=== PATIENT | female | born 2005 | race Caucasian/White ===

== ENCOUNTER 2025-08-14 23:36 | Observation (INO) ==
--- NOTE | 2025-08-15 00:15 | Emergency Department Note ---
Impression & Plan Acute appendicitis Admission ED Provider Note HPI: History obtained from patient. The patient is a 20-year-old female who presents emergency department with a chief complaint of lower abdominal pain that began at around 5 PM. Patient states she has also had 2 episodes of vomiting. Patient denies any diarrhea, she denies any chest pain or shortness of breath. On arrival here to the ED the patient is hemodynamically stable, she otherwise appears to be in no acute distress. ROS: - Per HPI Differential Diagnosis: Appendicitis, viral gastroenteritis, constipation, bowel obstruction, acute cholecystitis, diverticulitis flare, ectopic , amongst other potential pathologies. *Outpatient medications and allergy history reviewed. 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 Patient was given IV fluids as well as IV morphine and IV Zofran. CT imaging of the abdomen pelvis with IV contrast is suggestive of an early acute appendicitis per the interpreting radiologist. I discussed the patient's presentation and CT imaging results with the on-call general surgeon, Dr. Hernandes. He is in agreement to admit the patient and stated that he would plan to perform an appendectomy later this morning. I discussed this with the patient and with her mother over the phone, they are in agreement to this plan and the patient was placed for admission in stable condition. Consultants/Discussions held with other healthcare providers: -General surgery, Dr. Hernandes Disposition discussion held by myself with: -Patient and patient's mother over the phone Diagnosis: 1. Acute appendicitis 2. Leukocytosis, acute Disposition: Admission John Paige DO Emergency Medicine Past Med/Surg History Problem List (Updated 08/15/25 @ 04:55 by John Paige DO) Acute appendicitis (Acute) Social History Smoking Status: Never smoker Preferred Language: Uzbek Feels Safe at Home: Yes Allergies Allergies Allergy/AdvReac Type Severity Reaction Status Date / Time No Known Allergies Allergy Unverified 08/15/25 02:49 Home Meds Home Medications Medication Instructions Recorded Confirmed levonorgestrel-ethinyl estradiol 1 tab PO DAILY 08/15/25 08/15/25 0.1 mg-20 mcg tablet (Vienva) Results & Data (ED) Vital Signs Vital Signs - 24 hr 08/14/25 23:40 08/15/25 00:19 08/15/25 00:21 Temperature 36.5 C Temperature Source Temporal Artery Scan Pulse Rate 79 72 68 Pulse Rate from SpO2 Sensor Pulse Rhythm Regular Regular Pulse Strength Normal Respiratory Rate 20 16 Respiratory Effort / Characteristics Non-Labored Spontaneous Respiratory Depth Normal Respiratory Pattern Regular Blood Pressure 113/76 Blood Pressure Mean 88 Blood Pressure Position Sitting Pulse Oximetry 100 97 Oxygen Delivery Method Room Air Room Air Sepsis Recent Fever Within 48 Hours No Sepsis New/Unexplained Change in Mental Status No Sepsis Action Taken by Nursing No Action Required 08/15/25 00:51 08/15/25 01:36 08/15/25 02:12 Temperature Temperature Source Pulse Rate 57 L 66 52 L Pulse Rate from SpO2 Sensor 67 53 L Pulse Rhythm Pulse Strength Respiratory Rate 12 19 19 Respiratory Effort / Characteristics Respiratory Depth Respiratory Pattern Blood Pressure 122/67 127/69 127/71 Blood Pressure Mean 85 88 89 Blood Pressure Position Pulse Oximetry 98 98 Oxygen Delivery Method Sepsis Recent Fever Within 48 Hours Sepsis New/Unexplained Change in Mental Status Sepsis Action Taken by Nursing 08/15/25 02:30 Temperature Temperature Source Pulse Rate 62 Pulse Rate from SpO2 Sensor 61 Pulse Rhythm Pulse Strength Respiratory Rate 22 Respiratory Effort / Characteristics Respiratory Depth Respiratory Pattern Blood Pressure 133/81 Blood Pressure Mean 98 Blood Pressure Position Pulse Oximetry 99 Oxygen Delivery Method Sepsis Recent Fever Within 48 Hours Sepsis New/Unexplained Change in Mental Status Sepsis Action Taken by Nursing Laboratory Data 08/15/25 00:04 08/15/25 00:04 Lab Results 08/15/25 08/15/25 Range/Units 00:04 00:10 WBC 17.16 H (4.8-10.8) K/ul RBC 3.90 L (4.20-5.40) M/uL Hgb 12.4 (12.0-16.0) g/dl Hct 35.8 L (37.0-47.0) % MCV 91.8 (80.0-100.0) fL MCH 31.8 (25.0-34.0) pg MCHC 34.6 (32.0-36.0) g/dL RDW Std Deviation 41.1 (36.4-46.3) fL RDW Coeff of Esdras 12.1 (11.5-14.5) % Plt Count 198 (130-400) K/uL MPV 10.4 (9.4-12.4) fL Immature Gran % (Auto) 0.6 % Neut % (Auto) 92.7 % Lymph % (Auto) 3.5 % Murray % (Auto) 3.0 % Eos % (Auto) 0.0 % Baso % (Auto) 0.2 % Neut # (Auto) 15.91 H (1.40-6.50) K/uL Lymph # (Auto) 0.60 L (1.20-3.40) K/uL Murray # (Auto) 0.52 (0.11-0.59) K/uL Eos # (Auto) 0.00 (0.00-0.50) K/uL Baso # (Auto) 0.03 (0.00-0.20) K/uL Immature Gran # (Auto) 0.10 (0.01-0.20) K/uL RBC Morphology Unremarkable PT 10.3 (9.0-12.0) Seconds INR 1.0 (0.9-1.1) Sodium 135 L (136-145) mmol/L Potassium 3.7 (3.5-5.1) mmol/L Chloride 101 (98-107) mmol/L Carbon Dioxide 23 (21-32) mmol/L Anion Gap 11 (3-11) BUN 11 (6-23) mg/dl Creatinine 0.70 (0.6-1.2) mg/dl Est Cr Clr Drug Dosing 117.6 ml/min eGFR 126.90 BUN/Creatinine Ratio 15.7 (10-20) Glucose 112 H (70-99(Fasting)) mg/dl Calcium 9.2 (8.6-10.3) mg/dl Total Bilirubin 0.6 (0.2-1.0) mg/dl AST 20 (13-39) U/L ALT 12 (7-52) U/L Alkaline Phosphatase 35 (34-104) U/L Total Protein 7.4 (6.0-8.3) gm/dl Albumin 4.2 (3.4-5.0) gm/dl Globulin 3.2 (2.5-4.0) gm/dl Albumin/Globulin Ratio 1.3 (0.9-2) Lipase 19 (11-82) U/L HCG, Qual Negative (Negative) Urine Color Yellow Urine Appearance Clear (Clear) Urine pH 6.5 (4.5-7.5) Ur Specific [place] 1.024 (1.000-1.030) Urine Protein Negative (Negative) Urine Glucose (UA) Negative (Negative) Urine Ketones 3+ H (Negative) Urine Blood Negative (Negative) Urine Nitrite Negative (Negative) Urine Bilirubin Negative (Negative) Urine Urobilinogen Negative (Negative) Ur Leukocyte Esterase Negative (Negative) Urine Comment Administered Medications Lactated Ringer's (Lr) 1,000 mls @ 80 mls/hr IV .[id number] LUTHER Stop: 08/18/25 02:44 Last Admin: 08/15/25 03:10 Dose: 80 mls/hr Documented By: FAUSTINO Morphine Sulfate (Morphine Sulfate 2 Mg/Ml Carp) 2 mg IV Q3H PRN PRN Reason: Pain (1,2,3,4,5) & Pre PT Stop: 08/29/25 02:28 Last Admin: 08/15/25 03:02 Dose: 2 mg Documented By: FAUSTINO Discontinued Medications Sodium Chloride (Nss) 1,000 mls @ 999 mls/hr IV .[id number] STA Stop: 08/15/25 01:04 Last Infusion: 08/15/25 01:43 Dose: Infused Documented By: Admin: 08/15/25 00:35 Dose: 999 mls/hr Documented By: FAUSTINO Piperacillin Sod/Tazobactam Sod (Zosyn) 4.5 gm in 100 mls @ 200 mls/hr IV NOW ONE; Protocol Stop: 08/15/25 03:29 Last Infusion: 08/15/25 03:47 Dose: Infused Documented By: Admin: 08/15/25 03:04 Dose: 200 mls/hr Documented By: FAUSTINO Ioversol (Optiray 320 100ml) 94 ml IV ONCE ONE Stop: 08/15/25 01:13 Last Admin: 08/15/25 01:13 Dose: 94 ml Documented By: [place] Morphine Sulfate (Morphine Sulfate 4 Mg/Ml 1 Ml Carp\Vial) 4 mg IV NOW STA Stop: 08/15/25 00:15 Last Admin: 08/15/25 00:35 Dose: 4 mg Documented By: FAUSTINO Ondansetron HCl (Ondansetron Inj 2 Mg/Ml 2 Ml Vial) 4 mg IV NOW STA Stop: 08/15/25 00:15 Last Admin: 08/15/25 00:35 Dose: 4 mg Documented By: FAUSTINO Imaging Data Radiologist's Impression: Abdomen/Pelvis CT 08/15/25 00:14 EXAM: CT abd pelvis IV con only CLINICAL HISTORY: lower abd pain, N/V TECHNIQUE: Multiple contiguous axial images were obtained from the level of the diaphragm to the pubic symphysis. This study was acquired after the intravenous (IV) administration of iodinated contrast material, given the patient's indications for the examination. If IV contrast material had not been administered, the likelihood of detecting abnormalities relevant to the patient's condition would have been substantially decreased. Coronal and sagittal reformatted images were generated and reviewed to improve anatomic localization and optimize lesion detection. CT scan was performed according to ALARA (as low as reasonably achievable) guidelines. COMPARISON: none FINDINGS: The visualized lung bases are clear. ABDOMEN/PELVIS: The liver is enlarged in size, measuring 16.4 cm in craniocaudal dimension and is normal in attenuation. No focal liver lesions are seen. There is no intrahepatic or extrahepatic biliary ductal dilatation. Hepatic vasculature is patent. The gallbladder is unremarkable. The spleen, pancreas, and adrenal glands are unremarkable. The kidneys are normal in size and attenuation. There is no hydronephrosis or perinephric fat stranding. No renal calculi or renal masses are identified. The ureters are normal in caliber, and no ureteral calculi are seen. The bladder is normal in contour. The uterus and bilateral adnexa are unremarkable. No evidence of focal or diffuse bowel wall thickening or evidence of bowel obstruction is seen. The appendix is pelvic in location, distended with fluid (maximum diameter 8.5 mm) with minimal adjacent fat stranding. No adenopathy or fluid collections are seen. Minimal free fluid seen in cul de sac. The aorta is normal in caliber. No aggressive-appearing osseous lesions are identified. IMPRESSION: 1. Early changes of acute appendicitis. 2. Mild hepatomegaly. Electronically signed by Jaylen Frye 08-15-2025 01:50 AM Discharge Plan Visit Data Chief Complaint: Abdominal Pain Stated Complaint: ABD PAIN AND VOMITING ED Provider: John Paige Discharge Problem: Acute appendicitis Patient Disposition: Admitted As Inpatient Condition: Fair Discharge Instructions Interventions: ED Discharge Assessment Last Done: 08/15/25 04:26 Discharge Problem: Acute appendicitis Qualifiers: Acute appendicitis type: unspecified acute appendicitis type Qualified Code(s): K35.80 - Unspecified acute appendicitis
[2025-08-15 00:28] LABS: Appearance Urine Clear (Clear); Glucose Urine UA Negative (Negative)
[2025-08-15 00:31] LABS: Hematocrit (blood only) 35.8 % (37.0-47.0); Hemoglobin 12.4 g/dl (12.0-16.0); Mean Corpuscular Hemoglobin 31.8 pg (25.0-34.0); Mean Corpuscular Volume 91.8 fL (80.0-100.0); Platelet Count 198 K/uL (130-400); RDW Standard Deviation 41.1 fL (36.4-46.3); Red Blood Count 3.90 M/uL (4.20-5.40); White Blood Count 17.16 K/ul (4.8-10.8)
[2025-08-15] MEDS: SODIUM CHLORIDE 0.9% 1,000 ML IV STA (00:35)
[2025-08-15] MEDS: MoRPHine SULFATE 4 MG/ML 1 ML CARP\\VIAL IV STA (00:35)
[2025-08-15] MEDS: ONDANSETRON INJ 2 MG/ML 2 ML VIAL IV STA (00:35)
[2025-08-15 00:48] LABS: Alanine Aminotransferase 12.0 U/L (7-52); Albumin Globulin Ratio 1.3 (0.9-2); Albumin Level 4.2 gm/dl (3.4-5.0); Alkaline Phosphatase 35.0 U/L (34-104); Anion Gap 11.0 (3-11); Bilirubin,Total 0.6 mg/dl (0.2-1.0); Blood Urea Nitrogen 11.0 mg/dl (6-23); Calcium 9.2 mg/dl (8.6-10.3); Carbon Dioxide 23.0 mmol/L (21-32); Chloride 101.0 mmol/L (98-107); Creatinine Clr Calc Pharmacy 117.6 ml/min; Globulin 3.2 gm/dl (2.5-4.0); Glucose 112.0 mg/dl (70-99(Fasting)); Lipase 19.0 U/L (11-82); Potassium 3.7 mmol/L (3.5-5.1); Sodium 135.0 mmol/L (136-145); Total Protein 7.4 gm/dl (6.0-8.3)
[2025-08-15 00:51] LABS: Immature Granulocytes # (auto) 0.10 K/uL (0.01-0.20); Immature Granulocytes % (auto) 0.6 %; Pregnancy Test, Serum Negative (Negative); RBC Morphology Unremarkable
[2025-08-15] MEDS: OPTIRAY 320 100ml IV ONE (01:13)
[2025-08-15 01:19] LABS: INR 1.0 (0.9-1.1); Prothrombin Time 10.3 Seconds (9.0-12.0)
--- NOTE | 2025-08-15 01:50 | CT Scan Report ---
EXAM: CT abd pelvis IV con only CLINICAL HISTORY: lower abd pain, N/V TECHNIQUE: Multiple contiguous axial images were obtained from the level of the diaphragm to the pubic symphysis. This study was acquired after the intravenous (IV) administration of iodinated contrast material, given the patient's indications for the examination. If IV contrast material had not been administered, the likelihood of detecting abnormalities relevant to the patient's condition would have been substantially decreased. Coronal and sagittal reformatted images were generated and reviewed to improve anatomic localization and optimize lesion detection. CT scan was performed according to ALARA (as low as reasonably achievable) guidelines. COMPARISON: none FINDINGS: The visualized lung bases are clear. ABDOMEN/PELVIS: The liver is enlarged in size, measuring 16.4 cm in craniocaudal dimension and is normal in attenuation. No focal liver lesions are seen. There is no intrahepatic or extrahepatic biliary ductal dilatation. Hepatic vasculature is patent. The gallbladder is unremarkable. The spleen, pancreas, and adrenal glands are unremarkable. The kidneys are normal in size and attenuation. There is no hydronephrosis or perinephric fat stranding. No renal calculi or renal masses are identified. The ureters are normal in caliber, and no ureteral calculi are seen. The bladder is normal in contour. The uterus and bilateral adnexa are unremarkable. No evidence of focal or diffuse bowel wall thickening or evidence of bowel obstruction is seen. The appendix is pelvic in location, distended with fluid (maximum diameter 8.5 mm) with minimal adjacent fat stranding. No adenopathy or fluid collections are seen. Minimal free fluid seen in cul de sac. The aorta is normal in caliber. No aggressive-appearing osseous lesions are identified. IMPRESSION: 1. Early changes of acute appendicitis. 2. Mild hepatomegaly. Electronically signed by Jaylen Frye 08-15-2025 01:50 AM
[2025-08-15] MEDS ORDERED: ONDANSETRON INJ 2 MG/ML 2 ML VIAL IV PRN ×2 (02:29→10:49)
[2025-08-15] MEDS ORDERED: MoRPHine SULFATE 4 MG/ML 1 ML CARP\\VIAL IV PRN (02:29)
[2025-08-15] MEDS ORDERED: PIPERACILLIN/TAZOBACTAM 4.5 GM/100 ML BAG IV SCH (02:30)
[2025-08-15] MEDS: MoRPHine SULFATE 2 MG/ML CARP IV PRN (03:02)
[2025-08-15] MEDS: PIPERACILLIN/TAZOBACTAM 4.5 GM/100 ML BAG IV ONE (03:04)
[2025-08-15] MEDS: LACTATED RINGER'S 1,000 ML IV SCH (03:10)
[2025-08-15] MEDS: PIPERACILLIN/TAZOBACTAM 4.5 GM/100 ML BAG IV SCH (08:14)
--- NOTE | 2025-08-15 08:30 | History & Physical Report ---
Date of Service August 15, 2025 Assessment & Plan (1) Acute appendicitis: Plan: IV abx IVF trial of zosyn failed to OR for lap appendectomy Acute appendicitis type: unspecified acute appendicitis type Qualified Code(s): K35.80 - Unspecified acute appendicitis Admission and Anticipated Discharge Date Admission Date: August 15, 2025 History of Present Illness Primary Care Provider: [facility] This is a 20YO who came to ED with complaints of lower abdominal pain that began last night and has also had 2 episodes of vomiting. Patient denies any diarrhea, she denies any chest pain or shortness of breath. CT scan shows acute appendicitis. Allergies Allergy/AdvReac Type Severity Reaction Status Date / Time No Known Allergies Allergy Unverified 08/15/25 02:49 Home Medications Medication Instructions Recorded Confirmed Type levonorgestrel-ethinyl estradiol 1 tab PO DAILY 08/15/25 08/15/25 History 0.1 mg-20 mcg tablet (Vienva) Past Med/Surg History Problem List (Updated 08/15/25 @ 04:55 by John Paige DO) Acute appendicitis (Acute) Social History Smoking Status: Never smoker Hx Alcohol Use: Yes Alcohol type: beer Hx Substance Use: No Preferred Language: Armenian Insulation Technician Required: No Beliefs That Will Affect Care: None Current Living Situation: Other Current Living Situation Comment: college roommates Feels Safe at Home: Yes Review of Systems no fever and no chills no problem reported no problem reported no cough and no dyspnea no chest pain + abdominal pain, + nausea and + vomiting; no change in bowel habits no dysuria no back pain no problem reported no localized weakness no behavioral changes Physical Exam Constitutional: WD/WN, vitals as above Eyes: no scleral abnormality ENMT: external ear and nose normal, oropharynx normal Neck: trachea midline Respiratory: normal respiratory effort, lungs clear to auscultation Cardiovascular: RRR, no murmur, no edema Gastrointestinal (Abdomen): Inspection/Auscultation: abdomen normal to inspection and normal bowel sounds; abdomen not distended Percussion/Palpation: + abdomen tender, + guarding and abdomen soft; abdomen not rigid Musculoskeletal: Head/Neck/Chest: normocephalic and head atraumatic Skin: no rashes, warm and dry Results & Data Vital Signs (Past 12 Hours) Vital Signs Temp Pulse Pulse Resp BP BP BP 08/15/25 07:43 37.0 C 70 16 118/78 08/15/25 04:36 36.8 C 62 18 134/92 08/15/25 04:26 60 17 136/86 08/15/25 04:10 58 L 08/15/25 03:13 54 L 17 128/84 08/15/25 02:30 62 22 133/81 08/15/25 02:12 52 L 19 127/71 08/15/25 01:36 66 19 127/69 08/15/25 00:51 57 L 12 122/67 08/15/25 00:21 68 08/15/25 00:19 72 16 08/14/25 23:40 36.5 C 79 20 113/76 Pulse Ox O2 Del Method 08/15/25 07:43 97 Room Air 08/15/25 04:36 98 Room Air 08/15/25 04:26 100 Room Air 08/15/25 04:10 08/15/25 03:13 98 Room Air 08/15/25 02:30 99 08/15/25 02:12 98 08/15/25 01:36 98 08/15/25 00:51 08/15/25 00:21 08/15/25 00:19 97 Room Air 08/14/25 23:40 100 Room Air Diagnostic Findings EXAM: CT abd pelvis IV con only ADDENDUM: The results were sent successfully via fax at [phone] at 1:12 AM EVENT PLANNING INTERN, 08/15/2025. Electronically signed by Jaylen Frye 08-15-2025 02:40 AM ADDENDUM END EXAM: CT abd pelvis IV con only CLINICAL HISTORY: lower abd pain, N/V TECHNIQUE: Multiple contiguous axial images were obtained from the level of the diaphragm to the pubic symphysis. This study was acquired after the intravenous (IV) administration of iodinated contrast material, given the patient's indications for the examination. If IV contrast material had not been administered, the likelihood of detecting abnormalities relevant to the patient's condition would have been substantially decreased. Coronal and sagittal reformatted images were generated and reviewed to improve anatomic localization and optimize lesion detection. CT scan was performed according to ALARA (as low as reasonably achievable) guidelines. COMPARISON: none FINDINGS: The visualized lung bases are clear. ABDOMEN/PELVIS: The liver is enlarged in size, measuring 16.4 cm in craniocaudal dimension and is normal in attenuation. No focal liver lesions are seen. There is no intrahepatic or extrahepatic biliary ductal dilatation. Hepatic vasculature is patent. The gallbladder is unremarkable. The spleen, pancreas, and adrenal glands are unremarkable. The kidneys are normal in size and attenuation. There is no hydronephrosis or perinephric fat stranding. No renal calculi or renal masses are identified. The ureters are normal in caliber, and no ureteral calculi are seen. The bladder is normal in contour. The uterus and bilateral adnexa are unremarkable. No evidence of focal or diffuse bowel wall thickening or evidence of bowel obstruction is seen. The appendix is pelvic in location, distended with fluid (maximum diameter 8.5 mm) with minimal adjacent fat stranding. No adenopathy or fluid collections are seen. Minimal free fluid seen in cul de sac. The aorta is normal in caliber. No aggressive-appearing osseous lesions are identified. IMPRESSION: 1. Early changes of acute appendicitis. 2. Mild hepatomegaly. Code Status & VTE Plan VTE Prophylaxis Plan VTE Prophylaxis will be ordered: Yes
[2025-08-15] MEDS: SODIUM CHLORIDE 0.9% 1,000 ML IV SCH (08:38)
[2025-08-15] MEDS ORDERED: LIDOCAINE 2% 2 ML VIAL/AMP(20MG/ML) INFIL ONE (10:11)
[2025-08-15] MEDS ORDERED: PROPOFOL IV EMULSION 10 MG/ML 20 ML VIAL IV ONE (10:11)
[2025-08-15] MEDS ORDERED: MIDAZOLAM HCL 1 MG/ML 2ML VIAL ONE (10:11)
[2025-08-15] MEDS ORDERED: ROCURONIUM BROMIDE 10 MG/ML 5 ML VIAL IV ONE (10:11)
[2025-08-15] MEDS ORDERED: ONDANSETRON INJ 2 MG/ML 2 ML VIAL ONE (10:11)
[2025-08-15] MEDS ORDERED: ALBUTEROL HFA 8 GM INHALER INH ONE (10:11)
[2025-08-15] MEDS ORDERED: DEXAMETHASONE SOD INJ 4 MG/ML VIAL ONE (10:11)
[2025-08-15] MEDS ORDERED: ATROPINE SULFATE 0.1 MG/ML 10ML SYR IV PRN (10:49)
--- NOTE | 2025-08-15 10:49 | Anesthesiology Consultation ---
Date of Service August 15, 2025 Assessment & Plan (1) Encounter for pre-operative examination: Chart Review Chart Review: Acceptable Risk for Surgery and Patient NOT seen in Pre Admission Testing Consults Requested none History Surgery Operation Date: 08/15/25 07:00 Proposed Procedures p Laparoscopic Appendectomy - Michael Hernandes MD Height/Weight Height: 5 ft 6 in Weight: 59 kg Allergies Allergy/AdvReac Type Severity Reaction Status Date / Time No Known Allergies Allergy Unverified 08/15/25 02:49 Medications Home Medications Medication Instructions Recorded Confirmed Last Taken levonorgestrel-ethinyl estradiol 1 tab PO DAILY 08/15/25 08/15/25 Unknown 0.1 mg-20 mcg tablet (Vienva) Active Medications Generic Name Dose Route Start Last Admin Trade Name Freq PRN Reason Stop Dose Admin Piperacillin Sod/Tazobactam Sod 4.5 gm in 100 mls @ 25 mls/hr 08/15/25 08:00 08/15/25 08:14 Zosyn IV 08/25/25 07:59 25 mls/hr Q8H LUTHER Administration Protocol Sodium Chloride 1,000 mls @ 80 mls/hr 08/15/25 08:30 08/15/25 08:38 Nss IV 08/18/25 08:29 80 mls/hr .[id number] LUTHER Administration Morphine Sulfate 2 mg 08/15/25 02:29 08/15/25 08:13 Morphine Sulfate 2 Mg/Ml Carp IV 08/29/25 02:28 2 mg Q3H PRN Administration Pain (1,2,3,4,5) & Pre PT NPO Date Last Intake of Fluids: 08/14/25 Time Last Intake of Fluids: 16:00 Date Last Intake of Solids: 08/14/25 Time Last Intake of Solids: 16:00 Social History Smoking Status: Never smoker Hx Alcohol Use: Yes Alcohol type: beer alcohol intake frequency: a few times a month Hx Substance Use: No Physical Exam Vital Signs Last Vital Signs Temp 98.2 F 08/15/25 10:44 Pulse 63 08/15/25 10:44 Resp 18 08/15/25 10:44 BP 112/73 08/15/25 10:44 Pulse Ox 98 08/15/25 10:44 O2 Del Method Room Air 08/15/25 10:44 Testing Laboratory Results 08/15/25 00:04 08/15/25 00:04 PT 10.3 Seconds (9.0-12.0) 08/15/25 00:04 INR 1.0 (0.9-1.1) 08/15/25 00:04 Urine Color Yellow 08/15/25 00:10 Urine Appearance Clear (Clear) 08/15/25 00:10 Urine pH 6.5 (4.5-7.5) 08/15/25 00:10 Ur Specific [place] 1.024 (1.000-1.030) 08/15/25 00:10 Urine Protein Negative (Negative) 08/15/25 00:10 Urine Glucose (UA) Negative (Negative) 08/15/25 00:10 Urine Ketones 3+ (Negative) H 08/15/25 00:10 Urine Nitrite Negative (Negative) 08/15/25 00:10 Ur Leukocyte Esterase Negative (Negative) 08/15/25 00:10
[2025-08-15] MEDS: cefOXitin 2,000 MG in DEXTROSE 5 % MINI-B 50 ML IV SCH (11:29)
[2025-08-15] MEDS ORDERED: cefOXitin SOD 1,000 MG VIAL ONE (11:30)
[2025-08-15] MEDS ORDERED: SUGAMMADEX SODIUM 200 MG/2 ML VIAL IV ONE (11:44)
[2025-08-15] MEDS ORDERED: NEOSTIGMINE METHYLSULFATE 1 MG/ML 10ML VIAL ONE (11:46)
[2025-08-15] MEDS ORDERED: GLYCOPYRROLATE 0.2 MG/ML VIAL ONE (11:46)
[2025-08-15] MEDS: BUPIVACAINE/EPINEPHRINE 0.5% MPF 1:200,000 30 ML VIAL ONE (11:52)
--- NOTE | 2025-08-15 12:01 | Operative Report ---
Post Operative Report Pre & Post Diagnosis Operation Date: 08/15/25 07:00 Pre-Op Diagnosis: Acute Appendicitis Post-Op Diagnosis: Acute Appendicitis I identified the patient and participated in the time-out.: Yes Procedure Operation Date: 08/15/25 07:00 Actual Procedures p Laparoscopic Appendectomy(Not Applicable) - Michael Hernandes MD Surgeon Michael Hernandes MD Front End Loader Driver none Estimated Blood Loss 5 Findings Consistent with Post-Op Diagnosis Specimens appendix to pathology Drains none Anesthesia Type General Complications none Disposition Accompanied Patient To Recovery: No Disposition: Recovery Room Indications This is a 20-year-old female who was admitted through the ED with acute abdominal pain. She ended up with a workup which showed a CT scan consistent with appendicitis and an elevated white count. She is placed on IV fluids IV antibiotics. She was taken the OR for laparoscopic appendectomy. Description of Procedure The patient was taken to the OR and underwent excellent general anesthesia. Their abdomen was prepped and draped in normal sterile fashion. A transverse supraumbilical incision was made, towel clamps were used to create tension on the abdominal wall as an visualized 5mm port was placed in the supraumbilical position, inserted with visualization gently into the peritoneal cavity. Good pneumoperitoneum was achieved to about 15 mmHg pressure. Once this was done, a visualized 12 mm left lower quadrant port and a 5mm suprapubic port were placed in normal fashion. Patient was then placed in head down and rolled to the left. A good diagnostic lap was performed. They had obvious acute appendicitis. A grasper was then was then used to grasp the tip of the appendix. The mesoappendix was splayed open and a harmonic scalpel was used to take down the mesoappendix. The base of the appendix was identified and an Endo EDUARDO stapler was used to transect the appendix at its base. The appendix was removed through the left lower quadrant port without incident. The appendix was sent for pathologic evaluation. The pneumoperitoneum was re-established after the 12 mm port was replaced. Saline was then used to irrigate the abdomen. There was a small amount of bleeding on the staple line which was clipped. The patient was then placed back in neutral position, the ports were removed and the pneumoperitoneum decompressed. The 12mm port fascia was then closed using a 0 Vicryl. The skin was then anesthetized with 0.5% Marcaine with epinephrine local. Interrupted Vicryl is used to close the skin. Dermabond was used to reinforce the incisions. Sterile dressings were applied. The patient tolerated procedure without complications was sent to the postop recovery period of observation. They will be sent to the floor for the rest of their care. I attest to the content of the Intraoperative Record and any orders documented therein. Any exceptions are noted below.
--- NOTE | 2025-08-15 12:38 | Anesthesiology Progress Note ---
Date of Service August 15, 2025 Anesthesia Post Procedure Vital Signs Vital Signs: Temp Pulse Pulse Resp BP BP BP 08/15/25 12:30 97.9 F 52 L 14 127/80 08/15/25 12:20 68 13 128/77 08/15/25 12:10 74 18 147/84 H 08/15/25 12:04 97.2 F L 107 H 20 152/94 H 08/15/25 10:44 98.2 F 63 18 112/73 112/73 08/15/25 07:43 98.6 F 70 16 118/78 08/15/25 04:36 98.2 F 62 18 134/92 08/15/25 04:26 60 17 136/86 08/15/25 04:10 58 L 08/15/25 03:13 54 L 17 128/84 08/15/25 02:30 62 22 133/81 08/15/25 02:12 52 L 19 127/71 08/15/25 01:36 66 19 127/69 08/15/25 00:51 57 L 12 122/67 08/15/25 00:21 68 08/15/25 00:19 72 16 08/14/25 23:40 97.7 F 79 20 113/76 Pulse Ox O2 Del Method O2 Flow Rate 08/15/25 12:30 100 Room Air 08/15/25 12:20 98 Room Air 08/15/25 12:10 100 Oxymask 4 08/15/25 12:04 100 Oxymask 8 08/15/25 10:44 98 Room Air 08/15/25 07:43 97 Room Air 08/15/25 04:36 98 Room Air 08/15/25 04:26 100 Room Air 08/15/25 04:10 08/15/25 03:13 98 Room Air 08/15/25 02:30 99 08/15/25 02:12 98 08/15/25 01:36 98 08/15/25 00:51 08/15/25 00:21 08/15/25 00:19 97 Room Air 08/14/25 23:40 100 Room Air Pain Intensity Lower Abdomen: Pain Intensity: 3 Transfer of Care Handoff Completed per policy Notes Mental Status: alert / awake / arousable and participated in evaluation Patient Amnestic to Procedure: Yes Nausea / Vomiting: adequately controlled Pain: adequately controlled Airway Patency, RR, SpO2: stable & adequate BP & HR: stable & adequate Hydration State: stable & adequate Anesthetic Complications: no major complications apparent and Pt Satisfied with anesthetic care
[2025-08-15] MEDS ORDERED: IBUPROFEN 600 MG TAB PO PRN (12:49)
[2025-08-15] MEDS: ACETAMINOPHEN 325 MG TAB PO PRN (17:51)
[2025-08-16 00:09] VITALS: TEMP 98.2
[2025-08-16 08:30] VITALS: BP 114/72; PULSE 60; RESP 20; O2SAT 98
--- NOTE | 2025-08-16 09:31 | Discharge Summary ---
Date of Service August 16, 2025 Admission HPI Per Admitting Provider This is a 20YO who came to ED with complaints of lower abdominal pain that began last night and has also had 2 episodes of vomiting. Patient denies any diarrhea, she denies any chest pain or shortness of breath. CT scan shows acute appendicitis. Principal Diagnosis acute appendicitis Discharge Exam Constitutional WD/WN, vitals as above cooperative and comfortable; no acute distress and not ill appearing Respiratory normal respiratory effort; no respiratory distress, no labored breathing and no retractions Gastrointestinal (Abdomen) Inspection/Auscultation: abdomen normal to inspection and + abdominal surgical incision (c./d/i with dermabond); abdomen not distended Percussion/Palpation: + abdomen tender (at incision sites appropriate postop ) and abdomen soft; no guarding and abdomen not rigid Skin no rashes, warm and dry Psychiatric A+Ox3, euthymic affect Discharge Data Allergies Allergy/AdvReac Type Severity Reaction Status Date / Time No Known Allergies Allergy Unverified 08/15/25 02:49 Consultations 08/15/25 02:24 ED Decision to Admit Stat Procedures Performed Operation Date: 08/15/25 07:00 Actual Procedures p Laparoscopic Appendectomy(Not Applicable) - Michael Hernandes MD Ordered Studies 08/15/25 00:14 CT Abd and Pelvis [CT abd pelvis IV con only] Stat Hospital Course (1) Acute appendicitis: Patient admitted to hospital and started on IV antibiotics and pain management. She was taken to operating room on 08/15/2025 for laparoscopic appendectomy by Dr. Hernandes. Patient was found to have uncomplicated appendicitis and tolerated procedure without difficulty. She was transferred to recovery then to medical floor for postop care. Diet advanced as tolerated, IV antibiotics continued, and pain management as needed. Patient was tolerating advanced diet with good pain control on POD # 1. She was discharged home in stable condition. Total Time Total Time Spent Total Time Spent (In Minutes): 30 Total Time Includes: Examination of the Patient, Discharge Planning, Medication Reconciliation and Communication With Other Providers Discharge Plan Discharge Items Patient Disposition: Home - Self-Care Reason For Visit: APPENDICITIS Discharge Diagnosis: Acute appendicitis Condition on Discharge: Good Activity: Per Instructions section Non-emergency contact: Primary Care Provider and Surgeon Call non-emergency contact if: you have any medication questions, your pain is not controlled, you have a fever, your temperature is above 101, your wound has increased redness, your wound has increased drainage and your wound pain has increased Follow-up/Referrals: Madelin Powers PA-C [Physician Environmental Educator] - [facility] [Primary Care Provider] - Diet: Regular Addtl Attending Provider Instructions: Post-Surgical ~Discharge Instructions Activity Recommendations: - lifting limitation: (20 pounds for 3-4 weeks), - exercise/sex/sports limit: (nonstrenuous for 2 weeks), - driving or machine use limit: (none for 1 week or until pain free and no longer taking narcotic pain medication), - Shower/bathe limit: (may shower, no submerging incisions underwater for 2 weeks) Diet: - Resume previous diet SPECIAL CARE INSTRUCTIONS: - May shower.. Let water run over area and pat dry. - Leave surgical glue on incisions, this will fall off on its own. - Call the surgeon's office with any questions or concerns - - (ex. temperature higher than 101 degrees F, excessive bleeding or pain). MEDICATIONS: - Resume previous medications unless instructed otherwise by your surgeon. - May alternate extra strength Tylenol and Ibuprofen as needed for pain -650 mg Tylenol every 6 hours as needed - Ibuprofen 600 mg every 6 hours with food - Percocet 1 every 6 hours, as needed for moderate to severe pain as needed _ Recommend daily stool softener (Colace) while taking narcotic pain medication to prevent constipation or straining . Drink plenty of water daily. FOLLOW UP VISIT: - If not already scheduled, please call the office to schedule a two week follow-up appointment. Office number Pending Studies at Discharge: Yes (appendix pathology, will be reviewed at postop visit) Stand-Alone Forms: My takokat, Work/School Release, Smoking Cessation Medications and DC Order Prescriptions: New oxycodone-acetaminophen 5-325 mg tablet 1 tab PO Q6H PRN (Reason: pain) Qty: 10 0RF Continued levonorgestrel-ethinyl estrad [Vienva] 0.1-20 mg-mcg tablet 1 tab PO DAILY Admission Data Admit Date/Time: 08/15/25 02:31 Attending Provider: Michael Hernandes Admit Provider: Michael Hernandes Primary Care Provider: [place] Other Providers: Michael Hernandes
== END 2025-08-16 13:42 | disposition home or self-care (01) ==
LOC: 2N 23:36 → ED 23:36 → 2N 08-15 04:26